=== PATIENT | male | born 1995 | race American Indian/Alaskan Native ===

== ENCOUNTER 2016-04-21 12:03 | Emergency (ER) | payer SELFPAY ==
[2016-04-21 12:10] VITALS: BP 160/94
[2016-04-21] MEDS ORDERED: MOTRIN PO ONE (12:24)
--- NOTE | 2016-04-21 12:33 | Emergency Department Report ---
ED ENT HPI - General Chief complaint: Sore Throat Stated complaint: SWOLLEN LYMPH NODES Time Seen by Provider: 04/21/16 12:23 Source: patient Mode of arrival: Ambulatory Limitations: No Limitations - History of Present Illness Initial comments: 21-year-old male comes in for sore throat and complaint of left nose that have been swollen for one week. Patient denies any nausea vomiting fever or chills. He does admit to some nasal congestion last night. Denies any sick contact. - Related Data Previous Rx's Medication Instructions Recorded Last Taken Type Cyclobenzaprine HCl [Flexeril 5mg] 5 mg PO TID #30 tablet 11/20/13 Unknown Rx HYDROcodone/APAP 5-325 [[place] 1 each PO Q6HR PRN #20 tablet 11/20/13 Unknown Rx 5/325] Ciprofloxacin HCl [Cipro] 250 mg PO BID #14 tablet 08/19/14 Unknown Rx Amoxicillin 500 mg PO BID #10 capsule 04/21/16 Unknown Rx Ibuprofen [Motrin 600 MG tab] 600 mg PO Q8H PRN #50 tablet 04/21/16 Unknown Rx Allergies Allergy/AdvReac Type Severity Reaction Status Date / Time No Known Allergies Allergy Verified 11/20/13 05:12 ED Dental HPI - General Chief complaint: Sore Throat Stated complaint: SWOLLEN LYMPH NODES Time Seen by Provider: 04/21/16 12:23 Source: patient Mode of arrival: Ambulatory Limitations: No Limitations - Related Data Previous Rx's Medication Instructions Recorded Last Taken Type Cyclobenzaprine HCl [Flexeril 5mg] 5 mg PO TID #30 tablet 11/20/13 Unknown Rx HYDROcodone/APAP 5-325 [[place] 1 each PO Q6HR PRN #20 tablet 11/20/13 Unknown Rx 5/325] Ciprofloxacin HCl [Cipro] 250 mg PO BID #14 tablet 08/19/14 Unknown Rx Amoxicillin 500 mg PO BID #10 capsule 04/21/16 Unknown Rx Ibuprofen [Motrin 600 MG tab] 600 mg PO Q8H PRN #50 tablet 04/21/16 Unknown Rx Allergies Allergy/AdvReac Type Severity Reaction Status Date / Time No Known Allergies Allergy Verified 11/20/13 05:12 ED Review of Systems ROS: Stated complaint: SWOLLEN LYMPH NODES Other details as noted in HPI ED Past Medical Hx - Past Medical History Previous Medical History?: No - Surgical History Past Surgical History?: No Additional Surgical History: circumsion - Social History Smoking Status: Current Every Day Smoker Substance Use Type: None - Medications Home Medications: Home Medications Medication Instructions Recorded Confirmed Last Taken Type Cyclobenzaprine HCl [Flexeril 5mg] 5 mg PO TID #30 tablet 11/20/13 Unknown Rx HYDROcodone/APAP 5-325 [[place] 1 each PO Q6HR PRN #20 tablet 11/20/13 Unknown Rx 5/325] Ciprofloxacin HCl [Cipro] 250 mg PO BID #14 tablet 08/19/14 Unknown Rx Amoxicillin 500 mg PO BID #10 capsule 04/21/16 Unknown Rx Ibuprofen [Motrin 600 MG tab] 600 mg PO Q8H PRN #50 tablet 04/21/16 Unknown Rx ED Physical Exam - General Limitations: No Limitations General appearance: alert, in no apparent distress - Head Head exam: Present: atraumatic, normocephalic - Eye Eye exam: Present: normal appearance - ENT ENT exam: Present: mucous membranes moist - Expanded ENT Exam Expanded Throat exam: Positive: tonsillar erythema, tonsillomegaly, tonsillar exudate - Neck Neck exam: Present: tenderness, lymphadenopathy - Respiratory Respiratory exam: Present: normal lung sounds bilaterally - Cardiovascular Cardiovascular Exam: Absent: regular rate (tachycardic) - GI/Abdominal GI/Abdominal exam: Present: soft. Absent: distended, tenderness ED Course Vital Signs 04/21/16 12:08 Temperature 98 F Pulse Rate 110 H Blood Pressure 160/94 O2 Sat by Pulse 100 Oximetry ED Medical Decision Making - Medical Decision Making Been evaluated by this provider in fast track. Ibuprofen for pain management. A rapid strep was obtained and sent out for culture. Critical care attestation.: If time is entered above; I have spent that time in minutes in the direct care of this critically ill patient, excluding procedure time. ED Disposition Clinical Impression: Sore throat, Generalized muscle ache Disposition: DISCHARGED TO HOME OR SELFCARE Is pt being admited?: No Does the pt Need Aspirin: No Condition: Stable Instructions: Pharyngitis (ED) Additional Instructions: Take ibuprofen for pain complete all antibiotics. Follow up with the primary care provider. Prescriptions: Amoxicillin 500 mg PO BID #10 capsule Ibuprofen [Motrin 600 MG tab] 600 mg PO Q8H PRN #50 tablet PRN Reason: Pain Referrals: PRIMARY CARE, [Primary Care Provider] - 3-5 Days [facility] [Provider Group] - 3-5 Days Forms: Work/School Release Form(ED)
== END 2016-04-21 13:44 | disposition home or self-care (01) ==
LOC: ED 12:03
DX: J02.9 Acute pharyngitis, unspecified (principal); M79.1 Myalgia; F17.200 Nicotine dependence, unspecified, uncomplicated
CPT/HCPCS: 87116; 87430; 99282